=== PATIENT | female | born 1950 | race Caucasian/White ===

== ENCOUNTER 2017-04-04 12:35 | Emergency (ER) | payer MEDICARE ==
[~2017-04-04] VITALS: Ht 160 cm; Wt 72.0 kg
[2017-04-04 12:37] VITALS: BP 169/103; PULSE 114; RESP 24; TEMP 98.3; O2SAT 98
--- NOTE | 2017-04-04 12:51 | PD ---
Physical Exam Time Seen by Provider: 12:48 Narrative 66yo F requesting refill on BP medication. Doesn't know what BP medication she takes. Has not taken in a month. C/o SOB w/exertion "forever." Denies chest pain, MARTÍNEZ, blurred vison, N, V. Patient seen in triage. VS reviewed. Awaiting bed placement. Data Data Last Documented VS Vital Signs Date Time Temp Pulse Resp B/P Pulse Ox O2 Delivery O2 Flow Rate FiO2 04/04/17 12:37 98.3 114 24 169/103 98 Room Air MDM Supervised Visit with JORGE L: No Scripts No Active Prescriptions or Reported Meds Monica Cohen Apr 04, 2017 12:51
--- NOTE | 2017-04-04 13:39 | PD ---
HPI . wants to be started on bp meds Chief Complaint: Medication Refill Request Time Seen by Provider: 13:33 Travel History International Travel<30 days: No Contact w/Intl Traveler<30days: No Traveled to known affect area: No History of Present Illness HPI 66-year-old female with history of hypertension here with request for starting blood pressure medication. Patient says she's been out of blood pressure medication for a month or greater and is requesting a refill. She does not recall the name of the medicine. She does not have a PCP. She denies any cp, sob , nausea, vomiting, diaphoresis, numbness, tingling or headache. She has no specific complaints only wanting medications. PFSH Past Medical History Hypertension: Yes (UNTREATED) Immunizations Current: Yes Menopausal: Yes : 6 Para: 5 Miscarriage: 1 Ovarian Cysts: Yes Past Surgical History Hysterectomy: Yes Social History Alcohol Use: Yes (3-4 GLASSES OF WINE PER DAY) Tobacco Use: No (QUIT 2007) Substance Use: No Allergies-Medications (Allergen,Severity, Reaction): Coded Allergies: No Known Allergies (Unverified , 04/04/17) Reported Meds & Prescriptions Reported Meds & Active Scripts Active No Active Prescriptions or Reported Medications Review of Systems General / Constitutional: No: Fever Eyes: No: Visual changes HENT: No: Headaches Cardiovascular: No: Chest Pain or Discomfort Respiratory: No: Shortness of Breath Gastrointestinal: No: Abdominal Pain Genitourinary: No: Dysuria Musculoskeletal: No: Pain Skin: No Rash Neurologic: No: Weakness Psychiatric: No: Depression Endocrine: No: Polydipsia Hematologic/Lymphatic: No: Easy Bruising Physical Exam Narrative GENERAL: AAO x 3, no acute distress, Well-nourished, well-developed patient. SKIN: Warm and dry. No visible rashes or bruising. HEAD: Normocephalic and atraumatic. EYES: No scleral icterus. No injection or drainage. EOM intact, PERRLA ENT: No nasal drainage noted. Mucous membranes pink. Airway patent. Very poor dentition. NECK: Supple, trachea midline. No JVD. CARDIOVASCULAR: Regular rate and rhythm without murmurs, gallops, or rubs. RESPIRATORY: Breath sounds equal bilaterally. No accessory muscle use. No rhonchi or rales. GASTROINTESTINAL: Abdomen soft, non-tender, nondistended. EXTREMITIES: No cyanosis. Bilateral nonpitting edema of the feet right greater than left. Pedal pulses palpable and normal. BACK: Nontender without obvious deformity. No CVA tenderness. NEURO: CN II-12 intact, filler shredder machine strength normal b/l, UE and LE 5/5, no focal deficits PSYCH: AAO x 3, normal affect. Data Data Last Documented VS Vital Signs Date Time Temp Pulse Resp B/P Pulse Ox O2 Delivery O2 Flow Rate FiO2 04/04/17 13:48 87 16 193/93 100 Room Air 04/04/17 12:37 98.3 MDM Medical Decision Making Medical Screen Exam Complete: Yes Emergency Medical Condition: Yes Medical Record Reviewed: Yes Differential Diagnosis Hypertension, medication refill, less likely hypertensive urgency Narrative Course 66-year-old female here requesting to be started on blood pressure medication. She has no complaints. She tells me she is unable to find a primary care provider. Patient is stable without any acute abnormalities. I discussed with her that she will need to be seen by PCP and have labs etc., done to determine what meds would be best. Patient verbalized understanding of instructions, questions were answered, and thanked me for their care. I advised them if their condition worsens, please return to the nearest emergency room for further care. Diagnosis Primary Impression: Hypertension Qualified Code: I10 - Essential hypertension Referrals: [facility] Patient Instructions: General Instructions Additional Instructions: Please establish with a local primary care provider for further workup and treatment. Med/Other Pt SpecificInfo: No Change to Meds Scripts No Active Prescriptions or Reported Meds Disposition: 01 DISCHARGE HOME Condition: Stable Evangelina Talbot Apr 04, 2017 13:39
[2017-04-04 13:48] VITALS: BP 193/93; PULSE 87; RESP 16; O2SAT 100
== END 2017-04-04 14:30 | disposition home or self-care (01) ==
LOC: NEPD 12:35
DX: I10 Essential (primary) hypertension (principal); Z76.0 Encounter for issue of repeat prescription; Z87.891 Personal history of nicotine dependence
CPT/HCPCS: 99281